=== PATIENT | male | born 1955 | race Caucasian/White ===

== ENCOUNTER 2023-11-23 15:07 | Emergency (ER) | payer OTHER ==
[~2023-11-23] VITALS: Ht 177.8 cm; Wt 97.7 kg
[2023-11-23] MEDS ORDERED: TIRZ5PEN SQ (15:36)
[2023-11-23] MEDS ORDERED: METF-877 PO (15:36)
[2023-11-23] MEDS ORDERED: ESOM1CAP20 PO (15:36)
[2023-11-23] MEDS ORDERED: LISI10TA24 PO (15:36)
[2023-11-23] MEDS: LIDOCAINE 1% MDV 20ML VIAL SC ONE (19:25)
[2023-11-23] MEDS: CEPHALEXIN 500 MG CAP PO ONE (19:55)
[2023-11-23] MEDS ORDERED: CEPH500C PO (20:01)
[2023-11-23 20:22] VITALS: BP 147/91; TEMP 98.6; O2SAT 98
== END 2023-11-23 20:23 | disposition home or self-care (01) ==
LOC: M ED 15:07 → EDBD 15:07 → M ED 20:23
DX: S81.812A Laceration without foreign body, left lower leg, initial encounter (principal); W31.1XXA Contact with metalworking machines, initial encounter; I10 Essential (primary) hypertension; E11.9 Type 2 diabetes mellitus without complications; K21.9 Gastro-esophageal reflux disease without esophagitis; C44.90 Unspecified malignant neoplasm of skin, unspecified; Y92.009 Unspecified place in unspecified non-institutional (private) residence as the place of occurrence of the external cause; Y93.89 Activity, other specified; Y99.9 Unspecified external cause status; Z79.811 Long term (current) use of aromatase inhibitors; Z79.4 Long term (current) use of insulin; Z79.899 Other long term (current) drug therapy

== ENCOUNTER → 2023-12-29 | Outpatient (CLI) | payer MEDICARE, OTHER ==
[~2023-12-29] MED LIST: CEPH500C PO; ESOM1CAP20 PO; LISI10TA24 PO; METF-877 PO; TIRZ5PEN SQ
[2023-12-29 15:36] LABS: BLOOD UREA NITROGEN 15 MG/DL (9-23); CALCIUM LEVEL 9.4 MG/DL (8.3-10.6); CARBON DIOXIDE LEVEL 30 MMOL/L (20-31); CHLORIDE LEVEL 104 MMOL/L (98-107); CREATININE FOR GFR 1.15 MG/DL (0.70-1.30); GLOMERULAR FILTRATION RATE > 60.0 (>49); GLUCOSE, FASTING 144 MG/DL (74-106); SODIUM LEVEL 138 MMOL/L (136-145)
== END ==
LOC: M LAB 14:13
PROVIDERS: ATTEND Physician Assistant
DX: S81.812D Laceration without foreign body, left lower leg, subsequent encounter (principal); Y93.9 Activity, unspecified; Y92.9 Unspecified place or not applicable